=== PATIENT | female | born 1990 | race Caucasian/White ===

== ENCOUNTER 2016-07-18 21:51 | Emergency (ER) | payer MEDICAID ==
[~2016-07-18] VITALS: Ht 162.6 cm; Wt 95.0 kg
[~2016-07-18 21:51] MED LIST: ALBU6.7H INH; AUGM875T PO; DUONI NEB; IBUP800T23 PO; LEVO.025 PO
[2016-07-18 22:06] VITALS: BP 152/94; PULSE 89; RESP 18; TEMP 97.8; O2SAT 100
[2016-07-18 23:00] VITALS: BP 146/77; PULSE 91; RESP 18; O2SAT 98
[2016-07-18] MEDS ORDERED: LEVO100T5 PO (23:09)
[2016-07-18] MEDS ORDERED: ALBU.5I NEB (23:12)
[2016-07-18] MEDS ORDERED: ALBU6.7H INH (23:12)
[2016-07-18] MEDS ORDERED: SODIUM CHLOR 0.9% 1000 ML INJ 1,000 ML IV SCH (23:22)
--- NOTE | 2016-07-18 23:27 | PD ---
HPI Chief Complaint: Flank/Kidney Pain Time Seen by Provider: 23:14 Travel History International Travel<30 days: No Contact w/Intl Traveler<30days: No Traveled to known affect area: No History of Present Illness HPI The patient is a 26-year-old female who complains of right upper quadrant pain for years. In the last few weeks has been getting worse. She states tonight the pain would not go away and she had some nausea without vomiting. She denies any diarrhea or fever. She states she ate a large [place] Citizen male prior to this pain coming on. Sometimes the pain radiates to the right subscapular region. She denies any fever. The pain is crampy, achy and is starting to disappear at this time. PFSH Past Medical History Asthma: Yes Cardiovascular Problems: Yes Diminished Hearing: No Respiratory: Yes (asthma) Thyroid Disease: Yes Tetanus Vaccination: < 5 Years Influenza Vaccination: No ?: Not LMP: Two weeks : 4 Para: 3 Miscarriage: 1 Tubal Ligation: Yes Social History Alcohol Use: Yes (Occasionally) Tobacco Use: No Substance Use: No Allergies-Medications (Allergen,Severity, Reaction): Coded Allergies: Phenergan (Verified Allergy, Intermediate, rash, 07/18/16) Robitussin (Verified Allergy, Intermediate, dye in med -throat swells, 07/18) Reported Meds & Prescriptions Reported Meds & Active Scripts Active Reported Albuterol Neb (Albuterol Sulfate) 2.5 Mg/0.5 Ml Neb 2.5 Mg NEB QID NEB Note: The Albuterol Sulfate Inhalation Solution is concentrated and must be diluted. Read complete instructions carefully before using. Proventil Hfa 6.7 GM Inh (Albuterol Sulfate) 90 Mcg/Act Aer 1 Puff INH Q4H PRN Levothyroxine (Levothyroxine Sodium) 100 Mcg Tab 100 Mcg PO DAILY Review of Systems Except as stated in HPI: all other systems reviewed are Neg Physical Exam Narrative GENERAL: The patient is alert, oriented 3 in slight apparent distress. Her vital signs show blood pressure 152/94 but otherwise normal. SKIN: Warm and dry. HEAD: Atraumatic. Normocephalic. EYES: Pupils equal and round. No scleral icterus. No injection or drainage. ENT: No nasal bleeding or discharge. Mucous membranes pink and moist. NECK: Trachea midline. No JVD. CARDIOVASCULAR: Regular rate and rhythm. No murmur appreciated. RESPIRATORY: No accessory muscle use. Clear to auscultation. Breath sounds equal bilaterally. GASTROINTESTINAL: Abdomen soft, with tenderness in the right upper quadrant to direct palpation, nondistended. Hepatic and splenic margins not palpable. No guarding or rebound is present. Crawford's sign is negative. MUSCULOSKELETAL: No obvious deformities. No clubbing. No cyanosis. No edema. NEUROLOGICAL: Awake and alert. No obvious cranial nerve deficits. Motor grossly within normal limits. Normal speech. PSYCHIATRIC: Appropriate mood and affect; insight and judgment normal. Data Data Last Documented VS Vital Signs Date Time Temp Pulse Resp B/P Pulse Ox O2 Delivery O2 Flow Rate FiO2 07/19/16 00:00 80 18 127/70 98 Room Air 07/18/16 22:06 97.8 Orders Beta Hcg (Quant/Titer) (07/18/16 23:22) Complete Blood Count With Diff (07/18/16 23:22) Comprehensive Metabolic Panel (07/18/16 23:22) Lipase (07/18/16 23:22) Urinalysis - C+S If Indicated (07/18/16 23:22) Us Abdomen Gallbladder (07/18/16 ) Iv Access Insert/Monitor (07/18/16 23:22) Ecg Monitoring (07/18/16 23:22) Oximetry (07/18/16 23:22) Ondansetron Inj (Zofran Inj) (07/18/16 23:30) Sodium Chlor 0.9% 1000 Ml Inj (Ns 1000 M (07/18/16 23:22) Sodium Chloride 0.9% Flush (Ns Flush) (07/18/16 23:30) Labs Laboratory Tests Test 07/18/16 07/18/16 23:20 23:45 Urine Color YELLOW Urine Turbidity SLIGHT Urine pH 6.5 Urine Specific [place] 1.027 Urine Protein NEG mg/dL Urine Glucose (UA) NEG mg/dL Urine Ketones NEG mg/dL Urine Occult Blood NEG Urine Nitrite NEG Urine Bilirubin NEG Urine Leukocyte Esterase NEG Urine RBC 0-2 /hpf Urine WBC 0-2 /hpf Urine Squamous Epithelial > 8 /hpf Cells Urine Bacteria OCC /hpf Microscopic Urinalysis Comment CULT NOT INDICATED White Blood Count 7.4 TH/MM3 Red Blood Count 4.57 MIL/MM3 Hemoglobin 13.3 GM/DL Hematocrit 37.7 % Mean Corpuscular Volume 82.4 FL Mean Corpuscular Hemoglobin 29.0 PG Mean Corpuscular Hemoglobin 35.2 % Concent Red Cell Distribution Width 12.0 % Platelet Count 217 TH/MM3 Mean Platelet Volume 9.3 FL Neutrophils (%) (Auto) 70.7 % Lymphocytes (%) (Auto) 21.6 % Monocytes (%) (Auto) 5.9 % Eosinophils (%) (Auto) 1.2 % Basophils (%) (Auto) 0.6 % Neutrophils # (Auto) 5.3 TH/MM3 Lymphocytes # (Auto) 1.6 TH/MM3 Monocytes # (Auto) 0.4 TH/MM3 Eosinophils # (Auto) 0.1 TH/MM3 Basophils # (Auto) 0.0 TH/MM3 CBC Comment DIFF FINAL Differential Comment Sodium Level 141 MEQ/L Potassium Level 3.7 MEQ/L Chloride Level 107 MEQ/L Carbon Dioxide Level 26.0 MEQ/L Anion Gap 8 MEQ/L Blood Urea Nitrogen 12 MG/DL Creatinine 0.64 MG/DL Estimat Glomerular Filtration 112 ML/MIN Rate Random Glucose 106 MG/DL Calcium Level 8.5 MG/DL Total Bilirubin 0.2 MG/DL Aspartate Amino Transf 22 U/L (AST/SGOT) Alanine Aminotransferase 41 U/L (ALT/SGPT) Alkaline Phosphatase 92 U/L Total Protein 7.4 GM/DL Albumin 3.5 GM/DL Lipase 123 U/L Human Chorionic Gonadotropin, LESS THAN 1 Quant MIU/ML MDM Medical Decision Making Medical Screen Exam Complete: Yes Emergency Medical Condition: Yes Medical Record Reviewed: Yes Interpretation(s) The CBC is normal. The complete metabolic profile is normal. The beta-hCG is less than 1. The urinalysis is normal and culture is not indicated. The ultrasound of the gallbladder shows normal common duct size an abnormal appearance of the gallbladder with wall thickening/edema and gallstones. Differential Diagnosis Cholecystitis, cholelithiasis with colic, colitis, pyelonephritis, musculoskeletal pain Narrative Course The patient has acute cholecystitis. I discussed the patient with Dr. Tavares and he will meet the patient tomorrow in his office. This is likely the best thing for the patient because the hospital is full and she would wait here in emergency department all night for a bed to be transferred to the [facility]. She can walk, has a normal white count and will stay nothing by mouth until she sees Dr. Tavares. Diagnosis Primary Impression: Cholecystitis Additional Instructions: As we discussed, stay nothing by mouth into you see Dr. Chapni. Any food might make the pain worse. I will write you Percocet and Phenergan prescriptions but the pharmacies don't open until tomorrow morning anyway. If the appointments in the afternoon you might be able to use these. Don't drink alcohol or drive on these medications. Med/Other Pt SpecificInfo: Prescription(s) given Scripts Promethazine (Phenergan)25 Mg Tab25 Mg PO Q6H PRN (Nausea/Vomiting) #15 TAB Ref 0 Prov:German Peters MD 07/19/16 Oxycodone-Acetaminophen (Percocet)5-325 mg Tab1 Tab PO Q4H PRN (PAIN) #15 TAB Ref 0 Prov:German Peters MD 07/19/16 Disposition: 01 DISCHARGE HOME Condition: Stable German Peters MD Jul 18, 2016 23:27
[2016-07-18] MEDS ORDERED: ONDANSETRON HCL 4 MG/2 ML VIAL IVP ONE (23:30)
[2016-07-18] MEDS ORDERED: SODIUM CHLORIDE 0.9% FLUSH 5 ML FLUSH IVF PRN (23:30)
[2016-07-18 23:45] VITALS: O2SAT 98
[2016-07-18 23:56] LABS: BLOOD, URINE NEG (NEG); GLUCOSE,URINE NEG (NEG); KETONE, URINE NEG (NEG); NITRITE,URINE NEG (NEG); PH, URINE 6.5 (5.0-8.5)
[2016-07-18 23:57] LABS: AUTOMATED NEUTROPHIL # 5.3 TH/MM3 (1.8-7.7); BASOPHIL % 0.6 % (0.0-2.0); EOSINOPHIL # 0.1 TH/MM3 (0-0.4); EOSINOPHIL % 1.2 % (0.0-4.0); HEMATOCRIT 37.7 % (35.0-46.0); HEMO FLAGS DIFF FINAL; LYMPH % 21.6 % (9.0-44.0); LYMPHOCYTE # 1.6 TH/MM3 (1.0-4.8); MEAN CELL VOLUME 82.4 FL (80.0-100.0); MEAN CORPUSCULAR HGB CONC 35.2 % (32.0-36.0); MONO % 5.9 % (0.0-8.0); NEUT % 70.7 % (16.0-70.0); PLATELET COUNT 217 TH/MM3 (150-450); RED BLOOD COUNT 4.57 MIL/MM3 (4.00-5.30); WHITE BLOOD COUNT 7.4 TH/MM3 (4.0-11.0)
[2016-07-19] VITALS: BP 127/70; PULSE 80; RESP 18; O2SAT 98
[2016-07-19 00:06] LABS: CHLORIDE 107 MEQ/L (98-107); POTASSIUM 3.7 MEQ/L (3.5-5.1); SODIUM (NA) 141 MEQ/L (136-145)
[2016-07-19 00:09] LABS: BACTERIA, URINE OCC /hpf; COMMENT (UR) CULT NOT INDICATED; CULTURE IF INDICATED CULT NOT INDICATED; RBC, URINE 0-2 /hpf (0-3); SQUAMOUS EPITHELIAL CELL URINE > 8 /hpf (0-5); URINE COLOR YELLOW (YELLW/STRAW); WBC, URINE 0-2 /hpf (0-5)
[2016-07-19 00:10] LABS: ANION GAP 8 MEQ/L (5-15); BLOOD UREA NITROGEN 12 MG/DL (7-18)
[2016-07-19 00:13] LABS: ALT (GPT) 41 U/L (10-53); AST (GOT) 22 U/L (15-37); GLOMERULAR FILTRATION RATE 112 ML/MIN (>89)
[2016-07-19 00:15] LABS: TOTAL BILIRUBIN ADULT 0.2 MG/DL (0.2-1.0)
[2016-07-19 00:16] LABS: ALKALINE PHOSPHATASE 92 U/L (45-117)
[2016-07-19 00:18] LABS: BETA HCG QUANT LESS THAN 1 MIU/ML (0-5)
[2016-07-19 01:00] VITALS: BP 143/80; PULSE 89; RESP 18; O2SAT 100
--- NOTE | 2016-07-19 01:08 | RADHPO ---
EXAM DATE/TIME: 07/19/2016 00:37 [place] COMPARISON: No previous studies available for comparison. INDICATIONS : Right upper quadrant pain. MEDICAL HISTORY : . Thyroid disease. Asthma. SURGICAL HISTORY : Tubal ligation. ENCOUNTER: Initial ACUITY: 3 months PAIN SCORE: 6/10 LOCATION: Right upper quadrant MEASUREMENTS: LIVER: 14.8 cm length COMMON DUCT: 4 mm RIGHT KIDNEY: 11.1 x 5.7 x 5.4 cm FINDINGS: LIVER: Normal echotexture without focal lesion or ductal dilatation. COMMON DUCT: No intraluminal mass or stone visualized. GALLBLADDER: Cholelithiasis is noted, and gallbladder wall thickening/edema up to 9 mm. No pericholecystic fluid. Negative sonographic Crawford's sign. PANCREAS: The visualized portions are within normal limits. RIGHT KIDNEY: No evidence of hydronephrosis, stone, or mass. CONCLUSION: 1. Abnormal appearance of the gallbladder with marked wall thickening/edema, and gallstones. Imaging findings can be seen with cholecystitis.. Bryson Soils MD on July 19, 2016 at 1:05 Board Certified Radiologist. This report was verified electronically.
[2016-07-19] MEDS ORDERED: PROM25TA5 PO (01:38)
[2016-07-19] MEDS ORDERED: PERC5TAB12 PO (01:38)
[2016-07-19] MEDS ORDERED: ZOFR8TAB PO (01:53)
[2016-07-19] MEDS ORDERED: KETOROLAC TROMETHAMINE 60 MG/2 ML (IM) VIAL IVP ONE (02:00)
[2016-07-19] MEDS ORDERED: KETOROLAC TROMETHAMINE 60 MG/2 ML (IM) VIAL IM ONE (02:00)
[2016-07-19] MEDS ORDERED: ONDANSETRON HCL 4 MG/2 ML VIAL IV ONE (02:00)
[2016-07-19 02:07] VITALS: BP 128/83; PULSE 74; RESP 18; TEMP 97.9; O2SAT 98
== END 2016-07-19 02:26 | disposition home or self-care (01) ==
LOC: PHED 21:51
DX: K81.9 Cholecystitis, unspecified (principal); J45.909 Unspecified asthma, uncomplicated
CPT/HCPCS: 76705; 80053; 81001; 83690; 84702; 85025; 96361; 96374; 96375; 96376; 99284; J1885; J2405; J7030

== ENCOUNTER 2016-07-25 06:13 | Emergency (ER) | payer MEDICAID ==
[~2016-07-25 06:13] MED LIST changes: +ALBU.5I NEB; -AUGM875T PO; -DUONI NEB; -IBUP800T23 PO; -LEVO.025 PO; +LEVO100T5 PO; +PERC5TAB12 PO; +PROM25TA5 PO; +ZOFR8TAB PO
[2016-07-25 06:15] VITALS: BP 126/80; PULSE 99; RESP 16; TEMP 98; O2SAT 100
--- NOTE | 2016-07-25 10:38 | PD ---
Data Data Last Documented VS Vital Signs Date Time Temp Pulse Resp B/P Pulse Ox O2 Delivery O2 Flow Rate FiO2 07/25/16 06:15 98.0 99 16 126/80 100 Orders Admit Order (Ed Use Only) (07/25/16 ) MDM Supervised Visit with MANPREET: No Narrative Course Patient sent to ED for treatment for cholecystitis by Dr. Chapin. Patient waited for some time in the waiting room, was brought back to triage, and then was seen by Dr. Chapin prior to any evaluation by an ED provider. Dr. Chapin requested admission, is taking patient to the OR shortly. Patient was admitted to Dr. Chapin. See Fitzgerald MD Jul 25, 2016 10:38
[2016-07-25 11:32] VITALS: BP 115/66; PULSE 79; RESP 17; O2SAT 100
[2016-07-25] MEDS ORDERED: PROPOFOL 200 MG/20 ML AMP IV ONE (12:00)
[2016-07-25] MEDS ORDERED: KETOROLAC TROMETHAMINE 60 MG/2 ML (IM) VIAL IM ONE (12:00)
[2016-07-25] MEDS ORDERED: ONDANSETRON HCL 4 MG/2 ML VIAL IV PUSH ONE (12:00)
[2016-07-25] MEDS ORDERED: NEOSTIGMINE METHYLSULFATE 10 MG/10 ML VIAL IV PUSH ONE (12:00)
[2016-07-25] MEDS ORDERED: BUPIVACAINE/EPINEPHRINE 0.25% PF 30 ML VIAL ONE (12:35)
[2016-07-25] MEDS ORDERED: ACETAMINOPHEN 1000 MG/100 ML VIAL IV ONE (12:41)
[2016-07-25] MEDS ORDERED: fentaNYL CITRATE 250 MCG/5 ML AMP ONE (12:41)
[2016-07-25] MEDS ORDERED: FAMOTIDINE 20 MG/2 ML VIAL ONE (12:41)
[2016-07-25] MEDS ORDERED: MIDAZOLAM HCL 2 MG/2 ML VIAL ONE (12:41)
[2016-07-25] MEDS ORDERED: DEXAMETHASONE SOD PHOS 4 MG/ML VIAL ONE (12:42)
[2016-07-25] MEDS ORDERED: LEVOFLOXACIN 500 MG PREMIX INJ 100 ML IV ONE (12:54)
[2016-07-25] MEDS ORDERED: oxyCODONE/ACETAMINOPHEN 5 MG/325 MG TAB PO PRN ×2 (14:15)
[2016-07-25] MEDS ORDERED: MORPHINE SULFATE 4 MG/ML INJ IV PRN ×2 (14:15)
[2016-07-25] MEDS ORDERED: ONDANSETRON HCL 4 MG/2 ML VIAL IV PRN (14:15)
[2016-07-25] MEDS ORDERED: SODIUM CHLORIDE 5 ML FLUSH PRN IVF (14:15)
[2016-07-25] MEDS ORDERED: *ONDANSETRON 4 MG VIAL PERIprocedural Use ONLY ONE (14:23)
[2016-07-25] MEDS ORDERED: *morphine SULFATE 8 MG/ML PERIprocedure ONLY ONE (14:35)
[2016-07-25] MEDS ORDERED: DO NOT ADM ANY ANTICOAGULANT DRUGS XX PRN (15:30)
[2016-07-25] MEDS ORDERED: KETOROLAC TROMETHAMINE 30 MG/ML (IVP) VIAL ONE (15:43)
[2016-07-25] MEDS ORDERED: KETOROLAC TROMETHAMINE 30 MG/ML (IVP) VIAL IV PUSH ONE (16:20)
[2016-07-25 16:55] VITALS: BP 141/82; PULSE 87; RESP 16; TEMP 97; O2SAT 96
[2016-07-25] MEDS ORDERED: SODIUM CHLORIDE 5 ML FLUSH BID IVF SCH (21:00)
--- NOTE | 2016-08-15 10:47 | MP ---
cc: JASON MUSA DATE OF SURGERY: 07/25/2016 DATE OF : 1990 PREOPERATIVE DIAGNOSIS Cholecystitis. POSTOPERATIVE DIAGNOSIS Cholecystitis. PROCEDURE Laparoscopic cholecystectomy. SURGEON Jason Musa ANESTHESIA General endotracheal. ESTIMATED BLOOD LOSS Scant. FINDINGS Inflamed gallbladder. SPECIMEN Gallbladder. COMPLICATIONS None. OPERATION The patient was brought to the operating room and placed on the operating table in a supine position. A bilateral sequential inflation device was placed on the lower extremities. General anesthesia was instituted, antibiotics initiated. The abdomen was prepped and draped sterilely. A point in the periumbilical region was anesthetized with 0.25% Marcaine with epinephrine. A skin incision was made. A 5 mm OptiView port was placed under direct vision, a pneumoperitoneum created. Under direct vision a 12 mm subxiphoid and two 5 mm right upper quadrant ports were placed. Prior to placement of all ports the skin and peritoneum were anesthetized with 0.25% Marcaine with epinephrine. The patient was placed in reverse Trendelenburg position, right side up. The gallbladder was retracted into the upper abdomen. The infundibulum was retracted. Calot's triangle was opened. The hepatoduodenal ligament was incised. The cystic artery was identified. It was circumferentially dissected with the Harmonic scalpel and then divided with the Harmonic scalpel. The cystic duct was identified, circumferentially dissected and divided with the Harmonic scalpel. The gallbladder was removed from the liver bed using the Harmonic scalpel. It was retrieved from the peritoneal cavity in an Endopouch through the 12 mm port site. The operative site was inspected. Hemostasis was present. There was no evidence of bile leak. CO2 was released. All ports were removed. All skin incisions were closed with 4-0 Monocryl. The abdominal wall was cleaned and a sterile dressing placed. The patient was awakened and taken to the recovery room. MD ZHENG Paredes/MARYELLEN /8:52 AM /10:39 AM
--- NOTE | 2016-08-29 09:28 | MH ---
cc: JO ANN RAHMAN DATE OF ADMISSION: 07/25/2016 DATE OF 03/04/1950 DATE OF ADMISSION 07/25/2016 REASON FOR ADMISSION Cholecystitis HISTORY This is a 26-year-old female who was scheduled to see me in my office for cholecystitis. She was seen at [facility] [address] on 07/18/2016 with a complaints of abdominal pain. Workup revealed findings of cholecystitis and she was scheduled to see me and was unable to make an appointment. As her pain increased, she was advised to go to the emergency room for evaluation. On my evaluation the patient complained of pain in the abdomen, right upper quadrant associated with nausea. No chest pain. No shortness of breath. No fevers or chills. The patient's ultrasound performed on 07/19 revealed thickening of the gallbladder wall with gallstones. PAST MEDICAL HISTORY Medical history is significant for - 1. Asthma. 2. Hypothyroidism. MEDICATIONS AT HOME 1. Albuterol. 1. Levothyroxine. ALLERGIES ROBITUSSIN. PHENERGAN. SOCIAL HISTORY She does not smoke. She drinks alcohol occasionally. FAMILY HISTORY Noncontributory. REVIEW OF SYSTEMS Significant for above. All other 10-point review is negative. PHYSICAL EXAMINATION GENERAL: On exam the patient is laying on the stretcher in no acute distress. HEENT: Her pupils are equal and reactive. Sclerae anicteric. NECK: Trachea is midline. RESPIRATIONS: Clear. CARDIOVASCULAR: Regular. GASTROINTESTINAL: Soft. Positive tenderness in the epigastrium, right upper quadrant. MUSCULOSKELETAL: No deformities. NEUROLOGICAL: Nonfocal. ASSESSMENT This is a patient with cholelithiasis and cholecystitis. PLAN The plan is to take her to the operating room for laparoscopic cholecystectomy. The risks and benefits were explained to include but not be exclusive to infection, bleeding, bile duct injury, hollow organ injury. technical aspects explained as well as evan and postoperative course. The patient verbalized understanding and consent was obtained. MD ZHENG Paredes/DAMARIS /10:23 AM /9:17 AM
== END 2016-07-25 17:43 | disposition home or self-care (01) ==
LOC: NETRI 06:13 → UNDOADMIN 10:36 → NEDA 10:36 → HSDI 11:46 → NEDA 11:46 → UNDODISIN 17:43 → NETRI 17:43
DX: K81.9 Cholecystitis, unspecified (principal)
CPT/HCPCS: 47562; 88304; J0131; J1100; J1885; J1956; J2250; J2270; J2405; J2710; J3010; 99281